=== PATIENT | male | born 1990 | race African-American/Black ===

== ENCOUNTER 2017-05-02 17:45 | Emergency (ER) | payer SELFPAY ==
[~2017-05-02] VITALS: Ht 190.5 cm; Wt 117.2 kg
[~2017-05-02 17:45] MED LIST: NAPROSYN500 MG PO; NO HOME MEDS; PREVACID30 M2 PO; ULTRAM50 MG OR; ZOFRAN ODT4 MG PO
[2017-05-02] MEDS ORDERED: BL IBUPROFEN200 MG PO (17:55)
[2017-05-02 18:55] LABS: INFLUENZA A NONE DETECTED (NONE DETECT); INFLUENZA B NONE DETECTED (NONE DETECT)
[2017-05-02] MEDS ORDERED: AMOXICILLIN500 MG PO (19:31)
[2017-05-02] MEDS ORDERED: MEDDOSEPAK PO (19:31)
[2017-05-02 19:45] VITALS: BP 139/72
== END 2017-05-02 19:44 | disposition home or self-care (01) | DRG 153 ==
LOC: ED 17:45
PROVIDERS: Emergency Medicine
DX: J03.90 Acute tonsillitis, unspecified (principal); R09.81 Nasal congestion; R50.9 Fever, unspecified; R51 Headache

== ENCOUNTER 2017-08-20 09:51 | Emergency (ER) | payer SELFPAY ==
[~2017-08-20] VITALS: Ht 190.5 cm; Wt 125.0 kg
[~2017-08-20 09:51] MED LIST changes: +AMOXICILLIN500 MG PO; +BL IBUPROFEN200 MG PO; +MEDDOSEPAK PO
[2017-08-20] MEDS ORDERED: TORADOL PO (10:36)
[2017-08-20] MEDS ORDERED: AMOXICILLIN500 MG PO (10:36)
[2017-08-20 10:42] VITALS: BP 128/72
== END 2017-08-20 10:42 | disposition home or self-care (01) | DRG 156 ==
LOC: ED 09:51
DX: J34.89 Other specified disorders of nose and nasal sinuses (principal)

== ENCOUNTER 2019-01-16 07:48 | Emergency (ER) | payer SELFPAY ==
[~2019-01-16] VITALS: Ht 190.5 cm; Wt 113.6 kg
[~2019-01-16 07:48] MED LIST changes: +TORADOL PO
[2019-01-16] MEDS ORDERED: AMOXICILLIN/CL875 MG PO (08:05)
[2019-01-16 08:15] VITALS: BP 135/77
== END 2019-01-16 08:22 | disposition home or self-care (01) | DRG 153 ==
LOC: ED 07:48
DX: J02.0 Streptococcal pharyngitis (principal)

== ENCOUNTER 2020-01-08 17:31 | Observation (INO) | payer SELFPAY ==
[~2020-01-08] VITALS: Ht 190.5 cm; Wt 122.8 kg
[~2020-01-08 17:31] MED LIST changes: +AMOXICILLIN/CL875 MG PO
--- NOTE | 2020-01-08 17:51 | NUR ---
PT BROUGHT BY EMS. PT A&O X 3. WALKED FROM STRETCHER TO THE BED. NO DISTRESS NOTED
[2020-01-08 17:56] LABS: IMMATURE GRANULOCYTES 0.3 % (0.0-5.0); MEAN CELL VOLUME 85.7 fL CALC (80.0-100.0); MEAN CORPUSCULAR HGB 27.9 pG CALC (26.0-32.0); MEAN CORPUSCULAR HGB CONC 32.6 g/dL CAL (32.0-36.0); NEUT# 7.41 thou/uL (1.82-7.42); RED BLOOD COUNT 5.02 mill/uL (4.70-6.10); RED CELL DISTRI WIDTH 13.5 % (11.5-15.5)
[2020-01-08 18:16] LABS: BILIRUBIN, TOTAL 0.4 mg/dL (0.0-1.4); CREATININE 1.7 mg/dL (0.7-1.3); POTASSIUM 4.1 mmol/l (3.5-5.1)
[2020-01-08 18:22] LABS: ALBUMIN 5.2 g/dL (3.2-5.0); TOTAL PROTEIN 8.3 g/dL (6.3-8.2)
--- NOTE | 2020-01-08 18:51 | NUR ---
PATIENT IS RESTING. NO DISTRESS NOTED
--- NOTE | 2020-01-08 19:14 | NUR ---
REPORT GIVEN TO ANDRIY RM
[2020-01-08 19:58] LABS: URINE BILIRUBIN - DIPSTICK NEGATIVE (NEGATIVE); URINE BLOOD DIPSTICK SMALL (NEGATIVE); URINE COLOR YELLOW; URINE GLUCOSE - DIPSTICK NEGATIVE (NEGATIVE); URINE KETONE 15 mg/dL (NEGATIVE); URINE LEUK ESTERASE NEGATIVE (NEGATIVE); URINE NITRITE - DIPSTICK NEGATIVE (Negative); URINE PROTEIN - DIPSTICK 30 mg/dL (NEG-TRACE); URINE SPECIFIC GRAVITY >=1.030; URINE UROBILINOGEN - DIPSTICK 0.2 E.U./dL (0.2)
[2020-01-08 20:10] LABS: URINE WBC 0-2 WBC/hpf (0-5)
[2020-01-08 20:40] VITALS: BP 143/51
--- NOTE | 2020-01-08 21:12 | NUR ---
PT. ARRIVED TO THE FLOOR VIA STRETCHER ACCOMPANIED BY ER STAFF. ORIENTED TO ROOM, CALL LIGHT, AND POC; VERBALIZES UNDERSTANDING. ADMISSION ASSESSMENT COMPLETED; DENIES NEEDS/PAIN AT THIS TIME. IV SITE PATENT AND ORDERED IVF INFUSING WELL. ENCOURAGED TO CALL FOR ANY NEEDS. CALL LIGHT IS IN REACH.
--- NOTE | 2020-01-08 23:39 | NUR ---
PT. RESTING IN BED WITH EYES CLOSED; AWAKENED AND PT. AGREES THAT IT IS OKAY TO SPEAK TO HIS MOTHER ABOUT HIS NARESH STATUS AND THIS ADMISSION. DENIES NEEDS.
[2020-01-09 00:17] VITALS: BP 110/52
[2020-01-09 03:26] VITALS: BP 115/63
--- NOTE | 2020-01-09 03:26 | NUR ---
RESTING IN BED WITH NO DISTRESS NOTED; DENIES NEEDS/PAIN. FRESH WATER GIVEN. VSS. ENCOURAGED TO CALL FOR ANY NEEDS. UPDATED ON PHONE ON PT'S STATUS. PT. WAS ASKED PRIOR TO GIVING ANY INFORMATION.
--- NOTE | 2020-01-09 05:38 | NUR ---
RESTING IN BED ON LEFT SIDE WITH EYES CLOSED; RESP. EVEN AND UNLABORED. CALL LIGHT IS IN REACH.
[2020-01-09 05:42] LABS: IMMATURE GRANULOCYTES 0.6 % (0.0-5.0); MEAN CELL VOLUME 86.6 fL CALC (80.0-100.0); MEAN CORPUSCULAR HGB 28.5 pG CALC (26.0-32.0); MEAN CORPUSCULAR HGB CONC 32.9 g/dL CAL (32.0-36.0); NEUT# 4.05 thou/uL (1.82-7.42); RED BLOOD COUNT 4.18 mill/uL (4.70-6.10); RED CELL DISTRI WIDTH 13.7 % (11.5-15.5)
[2020-01-09 06:02] LABS: HEMATOCRIT 36.2 % (39.0-50.0); HEMOGLOBIN 11.9 g/dl (14.0-18.0)
[2020-01-09 06:03] LABS: ALKALINE PHOSPHATASE 58 u/l (38-126); ANION GAP 10 (6-22 (CALC)); BILIRUBIN, TOTAL 0.4 mg/dL (0.0-1.4); BUN 23 mg/dL (9-20); BUN/CREATININE RATIO 22 (12-20 (CALC)); CARBON DIOXIDE 23 mmol/l (22-30); CHLORIDE 105 mmol/l (95-108); CREATININE 1.1 mg/dL (0.7-1.3); GFR > 60 ML/MIN (>=60 (CALC)); GFR FOR AFR.AMER. > 60 ML/MIN (>=60 (CALC)); POTASSIUM 3.7 mmol/l (3.5-5.1); SGOT/AST 68 u/l (17-59); SODIUM 134 mmol/l (137-146)
[2020-01-09 06:26] LABS: ALBUMIN 3.5 g/dL (3.2-5.0); CPK 2828 u/l (52-200); TOTAL PROTEIN 5.8 g/dL (6.3-8.2)
--- NOTE | 2020-01-09 07:30 | NUR ---
RECIEVED REPORT FROM La CORTES RN . PT RESTING IN SEMI FOWLERS POSTIION WATCHING TV. RESPIRATIONS ARE EVEN AND UNLABORED WITH NO SIGNS OF DISTRESS. INTRODUCED SELF TO PT AND DISCUSSED POC. ALL SAFETY PRECAUTIONS ARE IN PLACE WITH CALL LIGHT IN REACH. WILL COTNINUE TO MONITOR
[2020-01-09 08:52] VITALS: BP 117/67
--- NOTE | 2020-01-09 08:52 | NUR ---
ASSESSMENT AND VITALS COMPLETED AT THIS TIME. BP 117/67, HR 59, O2 100 ON ROOM AIR.RESPIRATIONS ARE EVEN AND UNLABORED WTIH NO SIGNS OF DISTRESS. LUNG SOUNDS ARE CLEAR. HEART RHYTHM IS NORMAL WITH TELE IN PLACE.BOWEL SOUNDS ARE ACTIVE IN ALL QUADRANTS WITH NO TENDERNESS, LAST REPORTED BM 01/08/20. RADIAL AND PEDAL PULSES ARE STRONG WITH NORMAL CAPILLARY REFILL. #18G IN LAC RUNNING WITH FLUIDS AT 150ML ORDERED, SITE APPEARS HEALTHY AND PATENT. PT DENIES ANY PAIN OR DISCOMFORTS AT THIS TIME.ALL SAFETY PRECAUTIONS ARE IN PLACE WITH CALL LIGTH IN REACH. WILL CONTINUE TO MONITOR
[2020-01-09 11:30] VITALS: BP 126/50
--- NOTE | 2020-01-09 12:20 | NUR ---
LAB AT BEDSIDE WITH PT AT THIS TIME. RESPIRATIONS ARE EVEN AND UNLABORED WITH NO SIGNS OF DISTRESS. ALL SAFETY PRECAUTIONS REMIAN IN PLACEW TIH CALL LIGHT IN REACH. WILL CONTINUE TO MONITOR
--- NOTE | 2020-01-09 16:17 | NUR ---
PT RESTING IN SEMI FOWLERS POSITION WATCHING TV WITH FRIEND AT BEDSIDE. RESPIRATIONS ARE EVEN AND UNLABORED WITH NO SIGNS OF DISTRESS. PT DENIES ANY PAIN OR DISCOMFORTS AT THIS TIME.ALL SAFETY PRECAUTIONS ARE IN PLACE WITH CALL LIGHT IN REACH. WILL CONTINUE TO MONITOR
[2020-01-09 17:20] VITALS: BP 122/64
[2020-01-09 18:30] VITALS: BP 108/52
--- NOTE | 2020-01-09 19:30 | NUR ---
ALERT AND ORIENTED X 4; NO PAIN OR SOB NOTED; VS STABLE; IV NS RUNNING W/O DIFFICULY VIA 18 GUAGE INT TO LA; TELE IN PROGRESS; SB 58; VOICED FEELING MUCH BETTER AND STATED HE IS READY TO GO HOME; GIRLFRIEND @ SIDE, BUT NOTIFIED VISITING HOURS OVER AND SHE HAPPILY WENT HOME WITHOUT ISSUE; NO S/S INFECTION NOTED; URINE CLEAR AND NO BURNING OR DIFFICULTY NOTED; PO FLUIDS ENCOURAGED, BUT PATIENT ONLY TAKING SMALL SIPS; SAID HE HAS NEVER BEEN ONE TO DRINK MUCH; NURSE EDUCATED PATIENT ON THE IMPORTANCE OF DRINKING ENOUGH FLUIDS, ESPECIALLY WHEN OUT IN THE SUN; PATIENT DEMONSTRATED UNDERSTANDING.
--- NOTE | 2020-01-09 23:15 | NUR ---
ALERT AND ORIENTED X 4; NO PAIN OR SOB NOTED; VS STABLE; IV NS RUNNING W/O DIFFICULY VIA 18 GUAGE INT TO LA; TELE IN PROGRESS; SB 57; cONTINUES TO ASK IF HE CAN GO HOME TOMORROW; NURSE ENCOURAGED PATIENT TO GIVE HIMSELF SOME TIME TO HEAL NO S/S INFECTION NOTED; URINE CLEAR AND NO BURNING OR DIFFICULTY NOTED; PO FLUIDS ENCOURAGED, BUT PATIENT STILL TAKING SMALL SIPS; NURSE REINFORCED THE IMPORTANCE OF DRINKING ENOUGH FLUIDS AND PATIENT VOICED UNDERSTANDING. WHEN OUT IN THE SUN; PATIENT DEMONSTRATED UNDERSTANDING.
[2020-01-10 04:00] VITALS: BP 110/53
[2020-01-10 05:23] LABS: HEMOGLOBIN 11.9 g/dl (14.0-18.0); MEAN CELL VOLUME 86.7 fL CALC (80.0-100.0); MEAN CORPUSCULAR HGB 27.9 pG CALC (26.0-32.0); MEAN CORPUSCULAR HGB CONC 32.2 g/dL CAL (32.0-36.0); RED BLOOD COUNT 4.27 mill/uL (4.70-6.10); RED CELL DISTRI WIDTH 13.8 % (11.5-15.5)
[2020-01-10 05:54] LABS: ANION GAP 8 (6-22 (CALC)); BUN 18 mg/dL (9-20); BUN/CREATININE RATIO 20 (12-20 (CALC)); CARBON DIOXIDE 26 mmol/l (22-30); CHLORIDE 104 mmol/l (95-108); CREATININE 0.9 mg/dL (0.7-1.3); GFR > 60 ML/MIN (>=60 (CALC)); GFR FOR AFR.AMER. > 60 ML/MIN (>=60 (CALC)); SODIUM 135 mmol/l (137-146)
[2020-01-10 06:30] LABS: CPK 5064 u/l (52-200)
--- NOTE | 2020-01-10 06:57 | NUR ---
RESTED WELL ALL NIGHT; VOICED NO PAIN, COUGH, OR SOB; VS STABLE ALL SHIFT; TELE SB @53; ABLE TO TURN AND RE-POSITION FREQUENTLY; NO WOUNDS NOTED; FLUIDS RUNNING WITHOUT ISSUE; INT FLUSHING WELL/ NO S/S INFECTION NOTED; CALM, COOPERATIVE AND UNDERSTANDING OF POC.
--- NOTE | 2020-01-10 07:35 | NUR ---
RECIEVED REPORT FROM WIN BAUMAN. PT RESTING IN LOW FOWLERS POSTIION WATCHING TV. INTRODUCED SELF TO PT AN DISCUSSED POC. ASSESSMENT AND VITALS COMPLETED AT THIS TIME. BP 129/68, HR 62, O2 99% ON ROOM AIR. RESPIRATIONS ARE EVEN AND UNLABORED WITH NO SIGNS OF DISTRESS.LUNG SOUNDS ARE CLEAR. HEART RHYTHM IS NORMAL WITH TELE IN PLACE. BOWEL SOUNDS ARE ACTIVE IN ALL QUADRANTS WITH NO TENDERNESS, LAST REPORTED BM 01/08/20. RADIAL AND PEDAL PULSES ARE STRONG WITH NORMAL CAPILLARY REFILL. #18G IN LAC RUNNING WITH FLUIDS, SITE APEARS HEALTHY AND PATENT. PT DENIES OF ANY PAIN OR DISCOMFORTS AT THIS TIME. ALL SAFETY PRECAUTIONS ARE IN PLACE WITH CALL LIGHT IN REACH. WILL CONTINUE TO MONITOR
[2020-01-10 07:36] VITALS: BP 129/68
--- NOTE | 2020-01-10 09:53 | NUR ---
PT EDUCATED ON DISCHARGE INSTRUCTIONS AT THIS TIME. PT VERABLIZED UNDERSTANDING. IV CATHATER REMOVED, PT TOELRATED WELL. AWAITING FOR TRANSPORTATION AT SI TIME.ALL SAFETY PRECAUTIONS ARE IN PLACE WITH CALL LIGHT IN REACH. WILL CONTINUE TO MONITOR
--- NOTE | 2020-01-10 09:56 | NUR ---
Discharge instructions given. Patient verbalizes understanding of same. Discharged in stable condition via Ambulatory to Home with spouse. All belongings sent with pt. PT LEFT VIA AMBULATING WITH STEADY GAIT IN STABEL CONDITION. ALL BELONGINGS AND DISCHARGE INSTRUCTIONS LEFT WITH PT
== END 2020-01-10 09:56 | disposition home or self-care (01) | DRG 558 ==
LOC: ED 17:31 → ED-I 19:00 → ED 19:16 → ED-I 19:17 → MS2 20:11
PROVIDERS: Family Medicine; Nurse Practitioner; ADMIT Internal Medicine; ATTEND Internal Medicine
DX: M62.82 Rhabdomyolysis (principal); N17.9 Acute kidney failure, unspecified; E86.0 Dehydration; Z11.59 Encounter for screening for other viral diseases
CPT/HCPCS: G0378

== ENCOUNTER 2020-01-16 14:09 | Emergency (ER) | payer SELFPAY ==
[~2020-01-16] VITALS: Ht 190.5 cm; Wt 122.0 kg
[2020-01-16 15:26] VITALS: BP 143/77
[2020-01-16] MEDS ORDERED: BACTRIM DS1 TAB PO (16:08)
[2020-01-16] MEDS ORDERED: CEPHALEXIN500 MG PO (16:08)
== END 2020-01-16 16:15 | disposition home or self-care (01) | DRG 315 ==
LOC: ED 14:09
DX: T80.1XXA Vascular complications following infusion, transfusion and therapeutic injection, initial encounter (principal); I80.8 Phlebitis and thrombophlebitis of other sites; L03.114 Cellulitis of left upper limb

== ENCOUNTER 2020-12-10 15:31 | Emergency (ER) | payer SELFPAY ==
[~2020-12-10] VITALS: Ht 190.5 cm; Wt 119.5 kg
[~2020-12-10 15:31] MED LIST changes: +BACTRIM DS1 TAB PO; +CEPHALEXIN500 MG PO
[2020-12-10] MEDS ORDERED: VOLTAREN1%GEL TOP (17:37)
[2020-12-10 17:50] VITALS: BP 119/63
== END 2020-12-10 17:50 | disposition home or self-care (01) | DRG 558 ==
LOC: ED 15:31
DX: M76.62 Achilles tendinitis, left leg (principal); M76.61 Achilles tendinitis, right leg; F17.200 Nicotine dependence, unspecified, uncomplicated; X50.3XXA Overexertion from repetitive movements, initial encounter; Y93.89 Activity, other specified; Y92.89 Other specified places as the place of occurrence of the external cause; Y99.0 Civilian activity done for income or pay

== ENCOUNTER 2021-01-14 11:54 | Emergency (ER) | payer OTHER ==
[~2021-01-14 11:54] MED LIST changes: +VOLTAREN1%GEL TOP
[2021-01-14 14:55] VITALS: BP 113/75
== END 2021-01-14 14:55 | disposition home or self-care (01) | DRG 179 ==
LOC: ED 11:54
DX: U07.1 COVID-19 (principal)

== ENCOUNTER 2021-05-12 12:44 | Emergency (ER) | payer SELFPAY ==
[~2021-05-12] VITALS: Ht 190.5 cm; Wt 135.0 kg
[2021-05-12 14:03] VITALS: BP 147/67
== END 2021-05-12 14:16 | disposition home or self-care (01) | DRG 566 ==
LOC: ED 12:44
DX: M21.372 Foot drop, left foot (principal); S71.132D Puncture wound without foreign body, left thigh, subsequent encounter; W34.00XD Accidental discharge from unspecified firearms or gun, subsequent encounter

== ENCOUNTER 2021-09-27 12:37 | Emergency (ER) | payer OTHER ==
[~2021-09-27] VITALS: Ht 190.5 cm; Wt 135.0 kg
[2021-09-27 13:13] LABS: IMMATURE GRANULOCYTES 0.2 % (0.0-5.0); MEAN CELL VOLUME 87.2 fL CALC (80.0-100.0); MEAN CORPUSCULAR HGB 28.8 pG CALC (26.0-32.0); NEUT# 2.57 thou/uL (1.82-7.42); RED BLOOD COUNT 4.93 mill/uL (4.70-6.10); RED CELL DISTRI WIDTH 14.4 % (11.5-15.5)
[2021-09-27 13:14] LABS: HEMOGLOBIN 14.2 g/dl (14.0-18.0)
[2021-09-27 13:30] LABS: ACT PARTIAL THROMBO TIME 25.7 SECONDS (20.0-32.5); ALKALINE PHOSPHATASE 59 u/l (38-126); ANION GAP 11 (6-22 (CALC)); BUN 16 mg/dL (9-20); BUN/CREATININE RATIO 16 (12-20 (CALC)); CARBON DIOXIDE 29 mmol/l (22-30); CHLORIDE 103 mmol/l (95-108); GFR > 60 ML/MIN (>=60 (CALC)); GFR FOR AFR.AMER. > 60 ML/MIN (>=60 (CALC)); LIPASE 51 u/l (23-300); POTASSIUM 4.1 mmol/l (3.5-5.1); PROTHROMBIN TIME 10.4 SECONDS (9.0-12.5); SGOT/AST 45 u/l (17-59); SODIUM 139 mmol/l (137-146)
[2021-09-27 13:31] LABS: ALBUMIN 4.5 g/dL (3.2-5.0); BILIRUBIN, TOTAL 0.7 mg/dL (0.0-1.4); TOTAL PROTEIN 7.8 g/dL (6.3-8.2)
[2021-09-27] MEDS ORDERED: FLEXERIL5 M1 PO (13:46)
[2021-09-27] MEDS ORDERED: IBUPROFEN600 MG PO (13:46)
[2021-09-27 13:47] VITALS: BP 143/80
== END 2021-09-27 14:06 | disposition home or self-care (01) | DRG 90 ==
LOC: ED 12:37
DX: S06.0X0A Concussion without loss of consciousness, initial encounter (principal); S00.83XA Contusion of other part of head, initial encounter; S39.012A Strain of muscle, fascia and tendon of lower back, initial encounter; M54.2 Cervicalgia; V89.2XXA Person injured in unspecified motor-vehicle accident, traffic, initial encounter